=== PATIENT | female | born 1965 | race Caucasian/White ===

== ENCOUNTER 2025-02-14 08:31 | Outpatient (AMB) | payer BC, SELFPAY ==
--- NOTE | 2025-02-14 08:33 | MHC.OFFVIS ---
Vital Signs 02/14/25 08:35 Height 5 ft 4 in Weight 143 lb 11.862 oz BMI 24.7 BP 132/76 Blood Pressure Location Lt brachial Position Sitting Pulse 64 Pulse Source Pulse Oximeter Pulse Oximetry (%) 100 Oxygen Delivery Method Room Air Intake Visit Reasons: Osteopenia Intake Note: New patient externally referred by PCP for Osteopenia. Sales Account Director Required: No Accompanied by: Self / Same As Patient Allergies No Known Allergies Allergy (Verified 02/14/25 08:36) Medication List - Last Reconciled 02/14/25 by Angel Nicole MD tafluprost (PF) 0.0015% 1 drp ophthalmic (eye) QPM HPI Comments Details: The patient, a 59-year-old female, was recently diagnosed with osteopenia following her first bone density screening. She has a history of an ankle fracture from a fall on ice, but no other significant fractures. Her dietary calcium intake includes cereal and low-fat milk, supplemented with calcium citrate and 5000 IU of vitamin D3 daily. She participates in kettlebell classes three times weekly for weight-bearing exercise. The patient denies kidney stones and has a family history of osteopenia and breast cancer. - Musculoskeletal: Denies fractures of hip, spine, forearm, or wrist; reports past ankle fracture. - Gastrointestinal: Reports lactose intolerance, managed with lactate capsules. - Endocrine: Reports polycystic ovarian syndrome, no spontaneous menstruation until age 40. - Family History: Reports family history of osteopenia and breast cancer. First diagnosed in few mos ago . Never Received treatment in the past No history of pathologic fracture or ONJ. Has several servings of dietary calcium per day in the form of cereal, milk , cheese . Not Takes Calcium supplement in divided doses. Takes 5000 IU of Vitamin D daily. Denies ever using PPI, anticoagulant, antiepileptic or glucocorticoid medication. Does weight bearing exercise 3 days per week in the form of kettlebell . 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 UTD on dental cleanings and sees dentist every 6 months. No planned upcoming dental work or extractions. No tabacco use or ETOH abuse DXA dated 11/06/24: T Score of -2.4 in femoral neck Labs: PENDING SALE TO [facility] Medical History (Updated 02/14/25 @ 08:39 by Angel Nicole MD) Osteopenia Surgical History (Updated 02/13/25 @ 15:51 by SALMA Chiu) History of endometrial ablation History of surgery Family History (Updated 02/13/25 @ 15:53 by SALMA Chiu) Mother Malignant neoplasm of breast Social History (Updated 02/13/25 @ 15:52 by SALMA Chiu) Alcohol intake: never Patient Tobacco Use Status: Never used Tobacco Physical Exam There are no Cushingoid features. Absence of blue sclera. Absence of kyphosis. Thyroid gland is of nl size and weighs 15 gms. There are no thyroid nodules palpated. Lungs CTA. Heart S1 S2 Reg R/R Abdominal exam benign. Muscle strength 5/5 . Examination of spine reveals absence of tenderness on palpation Assessment & Plan Assessment & Plan (1) Osteopenia: Code(s): M85.80 - Other specified disorders of bone density and structure, unspecified site Category: Medical Plan: This is a 59-year-old white female with a history of low bone mass. Rule out secondary causes Plan is to check a TSH, free T4, 25 hydroxy vitamin-D, 24 hour urine for calcium and creatinine, urine immunofixation. We will ensure 1200 mg of calcium and 2000 IU of vitamin D3. Assuming secondary workup was negative, FRAX calculation does not indicate pharmacologic therapy as necessary at this point. 1. Osteopenia The patient is advised to continue calcium and vitamin D supplementation and engage in weight-bearing exercises. A follow-up bone density test is recommended in two years, potentially with a trabecular bone score for further assessment. 4. Family history of breast cancer Consideration of raloxifene for dual benefits of bone health and breast cancer risk reduction, though the patient is hesitant due to potential side effects. During the consultation, I discussed the diagnosis of osteopenia with the patient, emphasizing the importance of calcium and vitamin D supplementation and regular weight-bearing exercise. We reviewed the potential benefits and risks of pharmacologic treatment, particularly raloxifene, given her family history of breast cancer. I advised her to consider a follow-up bone density test in two years, possibly including a trabecular bone score for a more comprehensive assessment. We also discussed the management of her lactose intolerance and the importance of maintaining adequate calcium intake. The patient was encouraged to research her options and return for follow-up in four months to review any new findings or decisions. Patient was informed and verbally consented to the use of an ambient scribe for clinic note documentation during this visit. Orders: Orders Thyroid Stimulating Hormone Today M85.80 - Other specified disorders of bone density and structure, unspecified site Calcium, 24 Hr Ur Today M85.80 - Other specified disorders of bone density and structure, unspecified site Vitamin D 25-OH Total Today M85.80 - Other specified disorders of bone density and structure, unspecified site Free T4 (Free Thyroxine) Today M85.80 - Other specified disorders of bone density and structure, unspecified site Creatinine, 24 Hr Group Today M85.80 - Other specified disorders of bone density and structure, unspecified site Immunofixation, Random Urine Today M85.80 - Other specified disorders of bone density and structure, unspecified site Coding Level of Care Code New Pt Level 4 (02835) Diagnoses Osteopenia M85.80
[2025-02-14 08:35] VITALS: BP 132/76; PULSE 64; O2SAT 100; BMI 24.7
--- OUTSIDE RECORDS SUMMARY | 2025-02-14 08:39 | XMS_ITS | Clinical Summary ---
Author Organization Patient Business [facility] Address [address] [place] [address] Care Team Providers Care Mail Delivery Supervisor Name Role Phone Jia Parks MD Primary Care Provider [phone] Medical History Medical History Date Comments Hypertension DX:Hypertension GERD (gastroesophageal reflux disease) DX:GERD (gastroesophageal reflux disease) Social History Tobacco Use Types Packs/Day Years Used Date Smoking Tobacco: Never Smokeless Tobacco: Never Alcohol Use Standard Drinks/Week Comments Not Currently 0 (1 standard drink = 0.6 oz pur e alcohol) Comments Unknown Sex and Gender Information Value Date Recorded Sex Assigned at Not on file Legal Sex Female 8:20 PM EST Gender Identity Not on file Sexual Orientation Not on file Obstetrics History Plan of Treatment Health Maintenance Due Date Last Done Comments Breast Cancer Screening 1965 DTaP,Tdap,and Td Vaccines (1 - Tdap) 1984 Hepatitis B Vaccines (1 of 3 - 19+ 3-dose series) 1984 Cervical Cancer Screening: P ap Smear 1986 Pneumococcal Vaccine: 50+ Ye ars (1 of 1 - PCV) 2015 Zoster Vaccines (1 of 2) 2015 Colorectal Cancer Screening: Colonoscopy 07/17/2022 Depression Screening 07/17/2022 HIV Screening 07/17/2022 Hepatitis C Screening 07/17/2022 Social Influencers of Health Screening 07/17/2022 COVID-19 Vaccine ( - 2023-2 5 season) 2024 Influenza Vaccine (Season Ended) 2025 RSV Immunization Adult Patie nts (1 - 1-dose 75+ series) 2040 HIB Vaccines Aged Out No longer eligi ble based on patient's age to complete this topic HPV Vaccines Aged Out No longer eligi ble based on patient's age to complete this topic Hepatitis A Vaccines Aged Out No long er eligible based on patient's age to complete this topic IPV Vaccines Aged Out No longer eligi ble based on patient's age to complete this topic MMR Vaccines Aged Out No longer eligi ble based on patient's age to complete this topic Meningococcal ACWY Vaccine Aged Out N o longer eligible based on patient's age to complete this topic Meningococcal B Vaccine Aged Out No l onger eligible based on patient's age to complete this topic Pneumococcal Vaccine: Pediat rics (0 to 5 Years) and At-Risk Patients (6 to 64 Years) Aged Out No longer eligible b ased on patient's age to complete this topic RSV Immunization Patients Un jodi 20 months Aged Out No longer eligible b ased on patient's age to complete this topic Varicella Vaccines Aged Out No longer eligible based on patient's age to complete this topic Insurance [facility] Care Teams Mail Delivery Supervisor Relationship Specialty Start Date End Date Jia Parks MD [address] [place] [phone] PCP - General Internal Medicine 07/26/24
--- OUTSIDE RECORDS SUMMARY | 2025-02-14 08:39 | XMS_ITS | Continuity of Care Document ---
Author Organization [facility] [address] [facility] [address] [place] [address] Phone [phone] Care Team Providers Care Manager Personnel Selection Name Role Phone Jia Parks M.D. Care Team Information Receiv er [phone] Social History Type Date Description Comments Sex Female Sex Unknown Medical Devices Description No Information Available Encounters Description No Information Available Assessments Description No Information Available Plan of Treatment Future Appointment(s):* 03/19/2025 9:15 am - Edna Chawla CNP at Main Office Functional Status Description No Information Available Mental Status Description No Information Available Referrals Description No Information Available
--- OUTSIDE RECORDS SUMMARY | 2025-02-14 08:39 | XMS_ITS | Clinical Summary ---
Author Organization [facility] Address [address] [place] [address] Care Team Providers Care Interactive Media Designer Name Role Phone Jia Parks MD Primary Care Provider Allergies No known active allergies Medications Medication Sig Dispensed Refills Start Date End Date Status famotidine (PEPCID) 40 MG tablet Take 40 mg by mouth daily. 0 Active Blood Pressure Monitoring (Blood Pressure Cuff) MISC Monitor your blood pressure 2 times daily, tobacco scrap sifter and before bed 1 each 0 05/28/2022 Active Social History Tobacco Use Types Packs/Day Years Used Date Smoking Tobacco: Never Smokeless Tobacco: Never Alcohol Use Standard Drinks/Week Comments Not Currently 0 (1 standard drink = 0.6 oz pur e alcohol) Sex and Gender Information Value Date Recorded Sex Assigned at Female 05/28/2022 11:17 AM EDT Gender Identity Female 05/28/2022 11:17 AM EDT Sexual Orientation Not on file Job Start Date Occupation Industry Not on file Not on file Not on file Last Filed Vital Signs Vital Sign Reading Time Taken Comments Blood Pressure 150/72 05/28/2022 1:22 PM EDT Pulse 62 05/28/2022 1:22 PM EDT Temperature 36.1 C (96.9 F) 05/28/2022 1:22 PM EDT Respiratory Rate 18 05/28/2022 1:22 PM EDT Oxygen Saturation 98% 05/28/2022 1:22 PM EDT Inhaled Oxygen Concentration - - Weight 64.9 kg (143 lb) 05/28/2022 10:42 AM EDT Height 162.6 cm (5' 4 ) 05/28/2022 10:42 AM EDT Body Mass Index 24.55 05/28/2022 10:42 AM EDT Plan of Treatment Health Maintenance Due Date Last Done Comments Hepatitis B Vaccines (1 of 3 - 3-dose series) 1965 Hepatitis C Screening 1965 COVID-19 Vaccine (#1) 1965 Depression Screening 1977 Preventative Health Evaluation 1983 DTap / Tdap / Td (1 - Tdap) 1984 Cervical Cancer Screening (P ap Smear) 1986 Colon Cancer Screening (Colonoscopy) 2010 Breast Cancer Screening (Mammogram) 2015 Shingrix-Zoster Vaccine (1 of 2) 2015 Influenza Vaccine (Season Ended) 2025 Pneumococcal Vaccine Aged Out No long er eligible based on patient's age to complete this topic RSV Ped < 20 months Aged Out No longe r eligible based on patient's age to complete this topic Care Teams Interactive Media Designer Relationship Specialty Start Date End Date Jia Parks MD [address] [place] [place] [address] PCP - General Internal Medicine 05/28/22
== END 2025-02-14 09:42 | disposition home or self-care (01) ==
LOC: HO.ENCR 08:32
PROVIDERS: PCP Internal Medicine; Visit Provider Internal Medicine Endocrinology, Diabetes & Metabolism
DX: M85.80 Other specified disorders of bone density and structure, unspecified site (principal)
CPT/HCPCS: 99204

== ENCOUNTER 2025-05-22 08:30 | Outpatient (REF) | payer BC, SELFPAY ==
[2025-05-22 09:55] LABS: Free T4 (Free Thyroxine) 1.17 ng/dL (0.71-1.85); Thyroid Stimulating Hormone 1.11 uIU/mL (0.32-4.0)
[2025-05-22 09:57] LABS: Creatinine, mg/dL 54.86
[2025-05-22 10:16] LABS: Total Volume 24 Hour Urine 2300 mL
[2025-05-30 12:22] LABS: Calcium/Creatinine Ratio 232 mg/g creat (30-275); Creatinine 24Hr Urine 1.31 g/24 h (0.50-2.15)
== END 2025-05-22 08:31 | disposition home or self-care (01) ==
LOC: HO.10HDL 08:30
PROVIDERS: Visit Provider Internal Medicine Endocrinology, Diabetes & Metabolism
DX: Z13.29 Encounter for screening for other suspected endocrine disorder (principal); M85.80 Other specified disorders of bone density and structure, unspecified site
CPT/HCPCS: 82306; 82340; 82570; 84439; 84443; 86335

== ENCOUNTER 2025-06-26 10:59 | Outpatient (AMB) | payer BC, SELFPAY ==
--- NOTE | 2025-06-26 11:00 | A.OFFVIS_ITS ---
Vital Signs 06/26/25 11:02 Height 5 ft 4 in Weight 142 lb BMI 24.4 BP 128/84 Blood Pressure Location Lt brachial Position Sitting Pulse 58 Pulse Source Pulse Oximeter Pulse Oximetry (%) 99 Oxygen Delivery Method Room Air Intake Visit Reasons: f/u low bone mass Intake Note: Patient present today for Osteopenia follow up. Social Services Aide Required: No Accompanied by: Self / Same As Patient Allergies No Known Allergies Allergy (Verified 06/26/25 11:04) Medication List - Last Reconciled 06/26/25 by Angel Nicole MD calcium carbonate (Alkums) 300 mg PO BID cholecalciferol (vitamin D3) 50 mcg PO DAILY tafluprost (PF) 0.0015% 1 drp ophthalmic (eye) QPM HPI Comments Details: The patient, a 60-year-old female, was recently diagnosed with osteopenia following her first bone density screening. She has a history of an ankle fracture from a fall on ice, but no other significant fractures. Her dietary jv cium intake includes cereal and low-fat milk, supplemented with calcium citrate and 5000 IU of vitamin D3 daily. She participates in [employer] classes three times weekly for weight-bearing exercise. The patient denies kidney stones and has a family history of osteopenia and breast cancer. - Musculoskeletal: Denies fractures of hip, spine, forearm, or wrist; reports past ankle fracture. - Gastrointestinal: Reports lactose intolerance, managed with lactate capsules. - Endocrine: Reports polycystic ovarian syndrome, no spontaneous menstruation until age 40. - Family History: Reports family history of osteopenia and breast cancer. First diagnosed in few mos ago . Never Received treatment in the past No history of pathologic fracture or ONJ. Has several servings of dietary calcium per day in the form of cereal, milk , cheese . Not Takes Calcium supplement in divided doses. Takes 5000 IU of Vitamin D daily. Denies ever using PPI, anticoagulant, antiepileptic or glucocorticoid medication. Does weight bearing exercise 3 days per week in the form of kettlebell . 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 UTD on dental cleanings and sees dentist every 6 months. No planned upcoming dental work or extractions. No tabacco use or ETOH abuse DXA dated 3/25/25: T Score of -2.4 in femoral neck Labs: [facility] Medical History (Updated 02/14/25 @ 08:39 by Angel Nicole MD) Osteopenia Surgical History History of endometrial ablation History of surgery Family History Mother Malignant neoplasm of breast Social History Alcohol intake: never Patient Tobacco Use Status: Never used Tobacco Physical Exam Vital Signs: Last Vital Signs Pulse 58 06/26/25 11:02 BP 128/84 06/26/25 11:02 Pulse Ox 99 06/26/25 11:02 Oxygen Delivery Method Room Air 06/26/25 11:02 BMI result Body Mass Index 24.4 Assessment & Plan Assessment & Plan (1) Osteopenia: Code(s): M85.80 - Other specified disorders of bone density and structure, unspecified site Category: Medical Plan: This is a 60-year-old white female with a history of low bone mass. Secondary workup was negative except for elevated 25 hydroxy vitamin-D Plan is to check a repeat 25 hydroxy vitamin-D as well as a phosphorus. We will ensure 1200 mg of calcium and 2000 IU of vitamin D3. Assuming secondary workup was negative, FRAX calculation does not indicate pharmacologic therapy as necessary at this point. We will speak about the idea of using Evista for breast cancer protection once the above returns. At this point, she returned to the care of her primary care provider who can repeat a DEXA bone density in about 2 years' time. If there was significant decline, either primary care doctor can start raloxifene or the patient returned referred back to endocrinology Orders: Orders Phosphorus Today M85.80 - Other specified disorders of bone density and structure, unspecified site Coding Level of Care Code Est Pt Level 3 (19526) Diagnoses Osteopenia M85.80
[2025-06-26 11:02] VITALS: BP 128/84; PULSE 58; O2SAT 99; BMI 24.4
--- OUTSIDE RECORDS SUMMARY | 2025-06-26 13:32 | XMS_ITS | Continuity of Care Document ---
Author Organization [facility] [address] [facility] [address] [place] [address] Phone [phone] Care Team Providers Care Setup Operator Name Role Phone Jia Parks M.D. Care Team Information Receiv er [phone] Social History Type Date Description Comments Sex Female Sex Unknown Medical Devices Description No Information Available Encounters Description No Information Available Assessments Description No Information Available Plan of Treatment No Information Available Functional Status Description No Information Available Mental Status Description No Information Available Referrals Description No Information Available
--- OUTSIDE RECORDS SUMMARY | 2025-06-26 13:32 | XMS_ITS | Clinical Summary ---
Author Organization [facility] Address [address] [place] [address] Care Team Providers Care Piece Work Inspector Name Role Phone Jia Parks MD Primary Care Provider [phone] Allergies No known active allergies Medications Medication Sig Dispensed Refills Start Date End Date Status famotidine (PEPCID) 40 MG tablet Take 40 mg by mouth daily. 0 Active Blood Pressure Monitoring (Blood Pressure Cuff) MISC Monitor your blood pressure 2 times daily, clinical informatics educator and before bed 1 each 0 05/28/2022 [...] Maintenance Due Date Last Done Comments Hepatitis C Screening 1965 COVID-19 Vaccine (#1) 1965 Depression Screening 1977 Preventative Health Evaluation 1983 DTap / Tdap / Td (1 - Tdap) 1984 Cervical Cancer Screening (P ap Smear) 1986 Colon Cancer Screening (Colonoscopy) 2010 Breast Cancer Screening (Mammogram) 2015 Shingrix-Zoster Vaccine (1 of 2) 2015 Influenza Vaccine (#1) 2025 RSV Adult > 60+ Yrs or Pregn ant (1 - 1-dose 75+ series) 2040 Hepatitis B Vaccines Aged Out No long er eligible based on patient's age to complete this topic Pneumococcal Vaccine Aged Out No long er eligible based on patient's age to complete this topic RSV Ped < 20 months Aged Out No longe r eligible based on patient's age to complete this topic Care Teams Piece Work Inspector Relationship Specialty Start Date End Date Jia Parks MD [address] [place] [address] PCP - General Internal Medicine 05/28/22
--- OUTSIDE RECORDS SUMMARY | 2025-06-26 13:32 | XMS_ITS | Clinical Summary ---
Author Organization Patient Business [facility] Address [address] [place] [address] Care Team Providers Care Electrician Bus Name Role Phone Jia Parks MD Primary Care Provider [phone] Medical History Medical History Date Comments Hypertension [...] Last Done Comments Breast Cancer Screening 1965 Colorectal Cancer Screening: Colonoscopy 1965 DTaP,Tdap,and Td Vaccines (1 - Tdap) 1984 Cervical Cancer Screening: P ap Smear 1986 Pneumococcal Vaccine: 50+ Ye ars (1 of 1 - PCV) 2015 Zoster Vaccines (1 of 2) 2015 HIV Screening 07/17/2022 Hepatitis C Screening 07/17/2022 Social Influencers of Health Screening 07/17/2022 Depression Screening 08/15/2024 COVID-19 Vaccine (1 - 2024-2 6 season) 2025 Influenza Vaccine (#1) 2025 RSV Immunization Adult Patie nts (1 - 1-dose 75+ series) 2040 HIB Vaccines Aged Out No longer eligi ble based on patient's age to complete this topic HPV Vaccines Aged Out No longer eligi ble based on patient's age to complete this topic Hepatitis A Vaccines Aged Out No long er eligible based on patient's age to complete this topic Hepatitis B Vaccines Aged Out No long [...] patient's age to complete this topic Insurance [employer] [facility] Care Teams Electrician Bus Relationship Specialty Start Date End Date Jia Parks MD [address] [address] PCP - General Internal Medicine 07/26/24
== END 2025-06-26 11:37 | disposition home or self-care (01) ==
LOC: HO.ENCR 10:59
PROVIDERS: PCP Internal Medicine; Visit Provider Internal Medicine Endocrinology, Diabetes & Metabolism
DX: M85.80 Other specified disorders of bone density and structure, unspecified site (principal)
CPT/HCPCS: 99213

== ENCOUNTER 2025-06-26 11:47 | Outpatient (REF) | payer BC, SELFPAY ==
--- OUTSIDE RECORDS SUMMARY | 2025-06-26 14:40 | XMS_ITS | Data Portability ---
Author Organization [place] - [facility], [facility] Address [id number] [place] [address] Care Team Providers Care Tar Boiler Name Role Phone TABATHA SIFUENTES Primary Care Provider [phone] Assessment No assessment recorded. 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 Procedures None recorded. Surgeries None recorded. Imaging MAMMO, screening , digital, bilateral , w/ CAD 2024 025 [email or web address] [facility], [address] [facility] [address], [place], [address], 03/13/2025 16:29:00 MAMMO, screening , digital, bilateral , w/ CAD 2023 024 [email or web address] 338 [facility], [address] [facility] [facility] [address], [place], [address], 02/27/2024 15:10:14 DEXA, axial skeleton 2023 024 [email or web address] 338 [facility], [address] [facility] [facility] [address], [place], [address], 03/05/2024 08:53:17 Medication Orders Yuvafem 10 mcg vaginal tablet 2024 025 [id number], [address] [place], [address], 03/04/2025 09:32:31 Patient TargetsNo targets recorded. Patient Instructions Encounter Date Encounter Id Patient Instructions Last Modified By Organization Details Last Modified Time 02/20/2024 [id number] mammogram: about this test Not available 02/20/2024 13:29:21 bladder training : care instructions Not available 02/20/2024 14:28:36 kegel exercises: care instructions Not available 02/20/2024 14:28:36 Stress Incontinence: Care Instructions Not available 02/20/2024 14:28:36 tips to help you stay healthy Not available 02/20/2024 13:19:07 Normal pelvic exam PAP/HPV sent BSE reviewed MGM due 09/08 Maternal hx of Breast ca (early stage), A&W at 85 My Risk info given Menopausal: No issues Colonoscopy done at 50, repeat in 2 years BMD: check if covered or by age 60 RTC annual/prn Not available 02/20/2024 14:29:59 03/04/2025 [id number] mammogram: about this test Not available 03/04/2025 08:42:34 tips to help you stay healthy Not available 03/04/2025 08:42:34 Normal pelvic exam PAP/HPV done 03/07 BSE reviewed MGM done 11/06 (Cat B) Maternal hx of Breast ca (early stage), A&W at 85 Menopausal: No issues Colonoscopy done at 50, repeat in 1 years BMD: check if covered or by age 60 RTC annual/prn Not available 03/04/2025 09:34:39 Reason for Referral None Reported. Results Created Date Observation Date Name Description Value Unit Range Abnormal Flag Note LastModifiedBy Organization Detail LastModifiedTime 02/20/20 24 02/20/2024 HPV MRNA E6/E7 HPV MRNA E6/E7 Negati ve negati ve APTIM A HPV assay detec ts 14 high risk HPV types (HPV 16,18 ,31,3 3,35, 39,45 ,51,5 2,56, 58,59 ,66,6 8). The assay is FDA appro juan for testi ng ThinP rep liqui d Pap vials but not FDA appro juan for detec ting HPV in SureP ath liqui d Pap speci mens. In-ho use valid ation has shown the assay can detec t all HPV types from [facility] Not Available [facility] [address] [place] [address], [id number] 02/22/2024 10:41:39 02/20/20 24 02/20/2024 THINP REP PAP TEST (IMAG ER), HPV SCREE N, REFLE X HPV 16,18 /45 report Report Final Gynec ologi jv Cytol ogy Repor t ----- ----- ----- ----- ----- ----- ----- ----- ----- ----- ----- ----- ThinP rep Pap Test, HPV Scree n, Refle x HPV Genot ype SPECI MEN ADEQU ACY: SATIS FACTO RY FOR EVALU ATION . INTER PRETA TION: NEGAT PHUONG FOR INTRA EPITH CARMITA Treviño OR IVONE LANGLEY . Atrop hy Note: This Pap test was proce ssed by the imagi ng loulou m, but requi red agusto De Leon d: [place], [place] (ASCP ) ----- ----- ----- ----- ----- ----- ----- ----- ----- ----- ----- ----- CLINI JV KEVINR YAJAIRA N: LMP: NG Clini jv Histo ry: NG Biops y Date: NG Speci men Sourc e: Cervi x, Endoc ervix Previ ous Pap Date: NG HPV RESUL TS: HPV mRNA E6/E7 17010 [id number] Appro juan: 02/20 Negat phuong REF RANGE : Negat phuong CPT Codes : 27684 ICD Codes : Z01.4 19 Not Available [facility] [address] [facility], [place], [address] 02/22/2024 10:41:42 02/20/2002/20/2024 urina lysis , dipst ick Leukocytes Trace Not Available In-Offi ce Order Internal Use Only DO Not Attach Compendium DO Not Attach Compendium, Do Not Delete/merge, 02/20/2024 13:13:29 02/20/2002/20/2024 urina lysis , dipst ick Nitrite negati ve Not Available In-Office Order Internal Use Only DO Not Attach Compendium DO Not Attach Compendium, Do Not Delete/merge, 02/20/2024 13:13:29 02/20/2002/20/2024 urina lysis , dipst ick Urobilinogen Normal : 1.0 mg/dl Not Available In-Office Order Internal Use Only DO Not Attach Compendium DO Not Attach Compendium, Do Not Delete/merge, 02/20/2024 13:13:29 02/20/2002/20/2024 urina lysis , dipst ick Protein Trace Not Available In-Office Order Internal Use Only DO Not Attach Compendium DO Not Attach Compendium, Do Not Delete/merge, 02/20/2024 13:13:02/20/2002/20/2024 urina lysis , dipst ick pH 7.0 Not Available In-Office Order Internal Use Only DO Not Attach Compendium DO Not Attach Compendium, Do Not Delete/merge, 02/20/2024 13:13:29 02/20/20 24 02/20/2024 urina lysis , dipst ick Blood Negati ve Not Available In-Office Order Internal Use Only DO Not Attach Compendium DO Not Attach Compendium, Do Not Delete/merge, [facility] 02/20/2024 13:13:29 02/20/20 24 02/20/2024 urina lysis , dipst ick Specific De Leon 1.005 Not Available In-Off ice Order Internal Use Only DO Not Attach Compendium DO Not Attach Compendium, Do Not Delete/merge, [facility] 02/20/2024 13:13:29 02/20/20 24 02/20/2024 urina lysis , dipst ick Ketone Negati ve Not Available In-Office Order Internal Use Only DO Not Attach Compendium DO Not Attach Compendium, Do Not Delete/merge, [facility] 02/20/2024 13:13:29 02/20/20 24 02/20/2024 urina lysis , dipst ick Bilirubin Negati ve Not Available In-Office Order Internal Use Only DO Not Attach Compendium DO Not Attach Compendium, Do Not Delete/merge, [facility] 02/20/2024 13:13:29 02/20/20 24 02/20/2024 urina lysis , dipst ick Glucose Negati ve Not Available In-Office Order Internal Use Only DO Not Attach Compendium DO Not Attach Compendium, Do Not Delete/merge, [facility] 02/20/2024 13:13:29 03/04/20 25 03/04/2025 urina lysis , dipst ick Interpretati on negati ve Not Available In-Office Order Internal Use Only DO Not Attach Compendium DO Not Attach Compendium, Do Not Delete/merge, [facility] 03/04/2025 08:30:42 03/04/20 25 03/04/2025 urina lysis , dipst ick Leukocytes Negati ve Not Available In-Office Order Internal Use Only DO Not Attach Compendium DO Not Attach Compendium, Do Not Delete/merge, [facility] 03/04/2025 08:30:42 03/04/20 25 03/04/2025 urina lysis , dipst ick Nitrite negati ve Not Available In-Office Order Internal Use Only DO Not Attach Compendium DO Not Attach Compendium, Do Not Delete/merge, [facility] 03/04/2025 08:30:42 03/04/2003/04/2025 urina lysis , dipst ick Urobilinogen Normal : 0.2 mg/dl Not Available In-Office Order Internal Use Only DO Not Attach Compendium DO Not Attach Compendium, Do Not Delete/merge, [facility] 03/04/2025 08:30:42 03/04/2003/04/2025 urina lysis , dipst ick Protein Negati ve Not Available In-Office Order Internal Use Only DO Not Attach Compendium DO Not Attach Compendium, Do Not Delete/merge, 03/04/2025 08:30:42 03/04/2003/04/2025 urina lysis , dipst ick Blood Negati ve Not Available In-Office Order Internal Use Only DO Not Attach Compendium DO Not Attach Compendium, Do Not Delete/merge, [facility] 03/04/2025 08:30:42 03/04/2003/04/2025 urina lysis , dipst ick Ketone Negati ve Not Available In-Office Order Internal Use Only DO Not Attach Compendium DO Not Attach Compendium, Do Not Delete/merge, [facility] 03/04/2025 08:30:42 03/04/2003/04/2025 urina lysis , dipst ick Bilirubin Negati ve Not Available In-Office Order Internal Use Only DO Not Attach Compendium DO Not Attach Compendium, Do Not Delete/merge, [facility] 03/04/2025 08:30:42 03/04/2003/04/2025 urina lysis , dipst ick Glucose Negati ve Not Available In-Office Order Internal Use Only DO Not Attach Compendium DO Not Attach Compendium, Do Not Delete/merge, [id number] 03/04/2025 08:30:42 03/04/2003/04/2025 urina lysis , dipst ick Appearance Clear Not Available In-Offi ce Order Internal Use Only DO Not Attach Compendium DO Not Attach Compendium, Do Not Delete/merge, [facility] 03/04/2025 08:30:42 03/04/2003/04/2025 urina lysis , dipst ick Color Yellow Not Available In-Office Order Internal Use Only DO Not Attach Compendium DO Not Attach Compendium, Do Not Delete/merge, [id number] 03/04/2025 08:30:42 10/14/1910/13/2024 MAMMO , scree leigha, bilat eral No observ ation record ed. [address] [facility] [address], [place], [address], 11/12/2024 19:14:51 11/10/1911/06/2024 DEXA, axial skele ton No observ ation record ed. [address] [facility] [address] [facility] [address], [place], [address], 11/22/2024 16:17:50 Result Notes None recorded. Problems No Known Problems Procedures Surgical History Date Name Laterality Status Provider Name and Address Organization Details Recorded Time 5 Date of Last Mammogram completed ARIELLE MONDRAGON MD [address] [facility], [address] [place] [address], [phone], [facility] 11/12/2024 19:13:09 4 Date of Last Pap Smear completed ARIELLE MONDRAGON MD [address] [facility], [address] [place] [address], [phone], [facility] 02/20/2024 13:28:52 endometrial ablation completed ARIELLE MONDRAGON MD [address] [facility], [address] [place] [address], [phone], [facility] 02/20/2024 13:33:27 Imaging Results None recorded. Procedure Notes None recorded. Medical Equipment None Reported. Allergies No known drug allergies Medications Name Sig Start Date Stop Date Status Note LastModified by Organization Details LastModified Time benzonatate 100 mg capsule TAKE 1 CAPSULE BY MOUTH 3 TIMES A DAY FOR 7 DAYS 03/04 completed Not Available Not Available Not Available mupirocin 2 % topical ointment APPLY TO SURGICAL SITE TWICE A DAY FOR 7-14 DAYS OR UNTIL FULLY HEALED 03/01 completed Not Available Not Available Not Available amoxicillin 875 mg-potassiu m clavulanate 125 mg tablet TAKE 1 TABLET BY MOUTH EVERY 12 HOURS FOR 7 DAYS 03/01 completed Not Available Not Available Not Available tafluprost (PF) 0.0015 % eye drops in a dropperette INSTILL 1 DROP INTO BOTH EYES IN THE EVENING active Not Available Not Available No t Available Yuvafem 10 mcg vaginal tablet INSERT 1 TABLET VAGINALLY TWICE WEEKLY active Not Available Not Available No t Available Plenvu 140 gram-9 gram-5.2 gram powder packs TAKE 3 PACKETS DISSOLVED IN WATER DIRECTED 03/04 completed Not Available Not Available Not Available Vitals Date Recorded Body height Body mass index (BMI) Body weight Systolic And Diastolic Provider Name and Address Organization Details Last Updated DateTime 02/20/2024 162.56 cm 24.2 kg/m2 89436.24 g 124/78 mm[Hg] Rohit Rodriguez [facility] 02/20/2024 13:10:29 Date Recorded Body weight Systolic And Diastolic Provider Name and Address Organization Details Last Updated DateTime 03/04/2025 22094.3 g 130/84 mm[Hg] Elvira Cazares [facility] 03/04/2025 08:35:53 Social History None recorded. 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 Family History Relationship Description Onset Age of this Age Resolved Age Notes LastModified by Organization Details LastModified Time Mother Malignant neoplasm of breast 55 early, lumpec lea &XRT, A& W at 85 Not available 02/20/2024 13:33:01 Maternal Aunt Malignant neoplasm of breast 80 Not available 2023 13:33:01 Medical History No medical history recorded. Gynecological History Statement/Question Response Current Control Method Menopause Date of Last Pap Smear 02/20/2024 Date of Last Mammogram 10/13/2024 Date of last DEXA 11/06/2024 IPV Screen Done 03/04/2025 Obstetrics History GPAL:G 2 P 2 0 0 2 Type Value Full Term 2 Living 2 Total 2 Immunizations Vaccine Type Date Status Note Provider Nam e and Address Organization Details Recorded Time Influenza, split virus, quadrivalent, PF 06/13/2022 completed Rohit Rodriguez [facility], [place] - [facility] 02/20/2024 13:11:51 Past Encounters Encounter ID Performer Location Encounter Start Date Encounter Closed Date Diagnosis/Indication Diagnosis SNOMED-CT Code Diagnosis ICD10 Code Diagnosis IMO Codes Diagnosis Note [id number] ARIELLE MONDRAGON MD [facility] [address] [place] [address] 02/20/2024 12:55:17 02/20/2024 13:30:11 Gynecologic examination 22276266 Z01.419 Screening for osteoporosis 520614784 Z13.820 Screening mammography 24 578390 Z12.31 Female uri nary stress incontinence 73310159 N39.3 [id number] ARIELLE MONDRAGON MD [facility] [place] [address] 03/04/2025 08:25:51 03/04/2025 08:44:22 Gynecologic examination 82714721 Z01.790 [id number] Screening mammography 24 902974 Z12.31 97611065 Postmenopa usal osteopenia 550341956 M85.80 Z78.0 2346899224 Atrophy of vagina 950890 009 N95.2 970682 Health Concerns Section Related Observation LastModified by Organization Detai ls LastModified Time None Recorded Concern Status LastModified by Organization Details LastModified Time None Recorded Advance Directives Directive None Recorded Payers Insurance Date Sequence Insurance Name Policy Number Policy [place] Covered Member ID [place] Member ID Guarantor Name 03/02/2025 1 [place] [facility] [place] [id number] Sherrill Rosales [id number] Sherrill Rosales Notes Date Note Type Note Provider Name and Address Organization Details Recorded Time 02/20/2024 text/html [facility] Annual GYNRe ported by PatientHistoryFor history, patient reportsno gynecologic complaints.Genitourina ry symptomsFor urinary symptoms, patient reportsstress incontinence (with exercise)but reportsno hematuria. For menstrual cycle, patient reportspostmenopausal. For vulva, patient reportsno genital lesion. For vagina, patient reportsnormal vaginal discharge.Breast symptomsFor breast, patient reportsno breast pain,no breast lump, andno nipple discharge.Endocrine symptomsFor sexual activity, patient reportsno sexual complaints,no pain during intercourse,normal libido, andsexually active no __. For menopausal symptoms, patient reportsno menopausal symptomsandnormal vaginal lubrication.Psychologi jv symptomsFor psychological symptoms, patient reportsno depression,no anxiety, andno pmdd. 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 Up to date with MG (09/07), hx of breast bx's, all benign. Last bx was about 5 years ago. S/P endometrial ablation in mid 40s. Improved sxs. No PMB.Pt not SA for 5 years, with prostate cancer ARIELLE MONDRAGON MD [address] [place] [address], [address] [place], [address], [facility] 02/20/2024 14:30:31 03/04/2025 text/html [facility] Annual GYNRe ported by PatientHistoryFor history, patient reportsno gynecologic complaints.Genitourina ry symptomsFor urinary symptoms, patient reportsstress incontinence (with exercise)but reportsno hematuria. For menstrual cycle, patient reportspostmenopausal. For vulva, patient reportsno genital lesion. For vagina, patient reportsnormal vaginal discharge.Breast symptomsFor breast, patient reportsno breast pain,no breast lump, andno nipple discharge.Endocrine symptomsFor sexual activity, patient reportsno sexual complaints,no pain during intercourse,normal libido, andsexually active no __. For menopausal symptoms, patient reportsno menopausal symptomsandnormal vaginal lubrication.Psychologi jv symptomsFor psychological symptoms, patient reportsno depression,no anxiety, andno pmdd. 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 S/P endometrial ablation in mid . Improved sxs. No PMB.Pt not SA for 6 years, with prostate cancer ARIELLE MONDRAGON MD [address] [place] [address], [address] [facility], [place], [address], [facility] 03/04/2025 09:35:40 OBGyn Episode No OBEpisode recorded.
== END 2025-06-26 11:48 | disposition home or self-care (01) ==
LOC: HO.10HDL 11:47
PROVIDERS: Visit Provider Internal Medicine Endocrinology, Diabetes & Metabolism
DX: M85.80 Other specified disorders of bone density and structure, unspecified site (principal)
CPT/HCPCS: 36415; 82306; 84100